=== PATIENT | female | born 1940 | race African-American/Black ===

== ENCOUNTER 2017-07-30 18:21 | Emergency (ER) | payer OTHER ==
[~2017-07-30] VITALS: Ht 162.6 cm; Wt 76.7 kg
[2017-07-30] MEDS ORDERED: MUCINEX D ER 61 EACH PO (20:25)
[2017-07-30 20:38] VITALS: BP 125/80
== END 2017-07-30 20:39 | disposition home or self-care (01) ==
LOC: ER 18:21
DX: J40 Bronchitis, not specified as acute or chronic (principal); E11.9 Type 2 diabetes mellitus without complications; F17.210 Nicotine dependence, cigarettes, uncomplicated; F10.99 Alcohol use, unspecified with unspecified alcohol-induced disorder; Z98.890 Other specified postprocedural states

== ENCOUNTER 2021-08-03 12:25 | Emergency (ER) | payer OTHER ==
[~2021-08-03] VITALS: Ht 162.6 cm; Wt 63.0 kg
[~2021-08-03 12:25] MED LIST: MUCINEX D ER 61 EACH PO
[2021-08-03] MEDS ORDERED: LIPITOR 40 MG T40 M1 PO (12:34)
[2021-08-03] MEDS ORDERED: DIAZEPAM 10 MG10 M2 PO (12:34)
[2021-08-03] MEDS ORDERED: FUROSEMIDE 40 M40 M1 PO (12:34)
[2021-08-03] MEDS ORDERED: METFORMIN HCL500 MG PO (12:35)
[2021-08-03] MEDS ORDERED: K-DUR10 MEQ PO (12:35)
[2021-08-03 12:49] LABS: URINE BILIRUBIN NEGATIVE (Negative); URINE BLOOD NEGATIVE (Negative); URINE CLARITY CLEAR; URINE COLOR YELLOW; URINE GLUCOSE-RANDOM* NEGATIVE (Negative); URINE KETONES NEGATIVE (Negative); URINE NITRITE-REFLEX NEGATIVE (Negative); URINE PROTEIN (DIPSTICK) NEGATIVE (Negative); URINE UROBILINOGEN 0.2 E.U./dl (0.2-1.0)
[2021-08-03 12:50] LABS: URINE LEUKOCYTES-REFLEX 3+ (Negative)
[2021-08-03 13:27] LABS: SQUAMOUS 4-10 Moderate /LPF (0-3)
[2021-08-03 13:28] LABS: BACTERIA-REFLEX 1-9 Few /HPF (None Seen); CRYSTALS None Seen /LPF (None Seen); HYALINE CASTS 0-3 Few /LPF (None Seen); URINE RBC None Seen /HPF (NONE SEEN); URINE WBC-REFLEX 6-15 Few /HPF (0-5)
[2021-08-03 13:35] LABS: ABSOLUTE NEUTROPHILS 4.5 thou/uL (1.4-8.2); BASOPHILS 2.8 % (0.0-2.0); EOSINOPHILS 9.8 % (0.0-3.0); HEMATOCRIT 28.2 % (37.0-47.0); HEMOGLOBIN 9.5 gm/dL (12.0-15.0); LYMPHOCYTES 25.8 % (24.0-44.0); MCH 32.6 pg (26.0-34.0); MCHC 33.7 g/dL (28.0-37.0); MCV 96.7 fL (80.0-100.0); MONOCYTES 6.2 % (1.0-8.0); PLATELET COUNT 319 thou/uL (150-400); POLYS 55.4 % (36.0-66.0); RBC 2.92 mil/uL (4.20-5.00); RDW 14.1 % (10.5-14.5); WBC 8.1 thou/uL (4.0-11.0)
[2021-08-03 13:47] LABS: CALCIUM 9.2 mg/dL (8.5-10.1); CREATININE 1.3 mg/dL (0.6-1.0); POTASSIUM 4.1 mmol/L (3.5-5.1)
[2021-08-03] MEDS ORDERED: MACROBID 100 M100 M1 PO (14:06)
[2021-08-03 14:11] VITALS: BP 108/47
--- NOTE | 2021-08-03 14:55 | EKG ---
[address] [address] ELECTROCARDIOGRAM REPORT Name: LOREEMANINDER HERMAN Room #: [facility]#: [id number] Admission: 08/03/21 Attend Phys: Discharge: Date of : 44 Report #: [id number] [facility] ED Test Date: 2021-08-03 Test Time: 13:15:56 Pat Name: MANINDER RALPH Department: Room: Gender: F [employer] Collector: mpar : 1940 Requested By: Maximo Barrientos Order Number: [id number] MD: Jules Kim Measurements Intervals [place] Rate: 79 P: 38 CO: 137 QRS: 4 QRSD: 89 T: 61 QT: 381 QTc: 437 Interpretive Statements Sinus arrhythmia Compared to ECG 08/31/1990 13:30:00 Sinus rhythm no longer present Electronically Signed On 08-03-2021 14:55:25 CDT by Jules Kim [email or web address] <ELECTRONICALLY SIGNED> By: Jules Kim MD, [facility] 08/03/21 1455 1315 1315 Jules Kim MD, FACC /EPI
== END 2021-08-03 14:15 | disposition home or self-care (01) ==
LOC: ER 12:25
PROVIDERS: Student in an Organized Health Care Education/Training Program
DX: N39.0 Urinary tract infection, site not specified (principal); E11.9 Type 2 diabetes mellitus without complications; F17.210 Nicotine dependence, cigarettes, uncomplicated; Z79.899 Other long term (current) drug therapy; Z88.6 Allergy status to analgesic agent